=== PATIENT | female | born 1960 ===

== ENCOUNTER 2017-12-07 15:34 | Emergency (ER) | payer SELFPAY ==
[2017-12-07 15:47] LABS: Basophils % (Auto) 0.5 % (0.0-1.8); Eosinophils # (Auto) 0.1 K/mm3 (0.0-0.4); Eosinophils % (Auto) 1.3 % (0.0-4.3); Hematocrit 44.7 % (30.3-42.9); Hemoglobin 14.9 gm/dl (10.1-14.3); Lymphocytes % (Auto) 22.1 % (13.4-35.0); Mean Corpuscular HGB Conc 33 % (30-34); Mean Corpuscular Hemoglobin 30 pg (28-32); Mean Corpuscular Volume 91 fl (79-97); Monocytes # (Auto) 0.6 K/mm3 (0.0-0.8); Monocytes % (Auto) 6.5 % (0.0-7.3); Platelet Count 199 K/mm3 (140-440); Red Blood Count 4.93 M/mm3 (3.65-5.03); Red Cell Distribution Width 13.1 % (13.2-15.2)
[2017-12-07 15:56] LABS: INR 0.87 (0.87-1.13)
[2017-12-07 15:57] LABS: Partial Thromboplastin Time 26.2 Sec. (24.2-36.6)
[2017-12-07 15:58] LABS: BUN/Creatinine Ratio 20; Blood Urea Nitrogen 12 mg/dL (7-17); Calcium 9.2 mg/dL (8.4-10.2); Hemolysis Index 4
--- NOTE | 2017-12-07 16:02 | Cat Scan Report ---
FINAL REPORT EXAM: CT HEAD/BRAIN WO CON HISTORY: neuro deficits < 6hrs or sx present upon awakening TECHNIQUE: CT examination of the head without IV contrast PRIORS: None. FINDINGS: 2.7 cm hyperdensity is noted in the left parietal lobe brain parenchyma. This most compatible with intercerebral hematoma. There is a thin rind of low density adjacent to this lesion compatible with minimal edema. Minimal mass effect from this lesion as well with 1 mm rightward septum pellucidum in deviation. Slight effacement of adjacent sulci in the left parietal lobe. No acute air-fluid level visualized in the included air-filled sinuses. Bone windows demonstrate no acute fracture. The ventricles and sulci are age-appropriate. Small CSF density in the left caudate body is suggestive of chronic lacunar infarct. IMPRESSION: Hyperdense lesion most compatible with intercerebral hematoma in the left parietal lobe deep white matter region. Differential includes heavily calcified neoplasm, considered less likely Small chronic appearing lacunar infarct in left caudate body 12/07/2017 at 3:53 p.m. EST: I discussed the findings over the phone with Dr. Wellington. He reports the patient came in with uncontrolled hypertension and this may be a hypertensive bleed
--- NOTE | 2017-12-07 16:44 | Emergency Department Report ---
ED Neuro Deficit HPI - General Chief Complaint: Neuro Symptoms/Deficit Stated Complaint: POSS STROKE Time Seen by Provider: 12/07/17 15:57 Source: EMS Mode of arrival: Stretcher Limitations: Altered Mental Status - History of Present Illness Initial Comments: According to the family, the patient started acting in an altered manner at about 1210 this afternoon per I think a significant other. By about 2:30, she called her daughter and was having obvious problems with her mentation. Her daughter called the ambulance for difficulty speaking. The patient is a 57-year -old female with a history of a prior stroke perhaps 10 years ago associated with slight left sided weakness I am told by paramedics. She has not seen a physician in 3 years. According to the family she is not taking any medications and does not have a history of hypertension. However it seems clear that she has not utilize any physician services for a long time. She was transported to this facility and found to have severe systolic hypertension as a code stroke. Examination at the daughter indicates that the patient has significant expressive aphasia. She is able to tell me her name and grasp my hands. She appears to be a bit emotionally labile however definitely seems phasic. She appears to have mild right sided drift. -: Sudden Location: speech, right arm, right leg History of same: Yes Place: home Severity: moderate Quality: other (difficulty speaking is the voiced symptom) Improves With: none Worsens With: none On Anticoagulants: No Context: sudden onset (probably) Associated Symptoms: other (dysarthric to obtain) - Related Data Allergies/Adverse Reactions: Allergies Allergy/AdvReac Type Severity Reaction Status Date / Time No Known Allergies Allergy Verified 12/07/17 15:36 ED Review of Systems ROS: Stated complaint: POSS STROKE Other details as noted in HPI Comment: Unobtainable due to pts medical conditions ED Past Medical Hx - Past Medical History Previous Medical History?: Yes Additional medical history: stroke 2008 - Surgical History Past Surgical History?: No - Social History Smoking Status: Never Smoker Substance Use Type: None ED Neuro Physical Exam - General Limitations: Altered Mental Status General appearance: in no apparent distress, anxious Suspected Stroke: Yes - Head Head exam: Present: atraumatic, normocephalic - Eye Eye exam: Present: normal appearance, PERRL, EOMI. Absent: scleral icterus - ENT ENT exam: Present: mucous membranes moist - Neck Neck exam: Present: normal inspection. Absent: tenderness, meningismus - Respiratory Respiratory exam: Present: normal lung sounds bilaterally. Absent: respiratory distress - Cardiovascular Cardiovascular Exam: Present: regular rate, normal rhythm. Absent: systolic murmur, diastolic murmur, rubs, gallop - GI/Abdominal GI/Abdominal exam: Present: soft, normal bowel sounds. Absent: distended, tenderness, guarding, rebound, rigid - Extremities Exam Extremities exam: Present: normal inspection - Back Exam Back exam: Present: normal inspection - Neurological Exam Neurological exam: Present: altered, oriented X3 (can barely tell me her name and aware she is in the hospital), other (right sided drift upper and lower, plantar is upgoing on the left downgoing on the right) - NIHSS Assessment Interval: Baseline 1a. Level of Consciousness: alert 1b. LOC Questions: answers 1 question correctly 1c. LOC Commands: performs tasks correctly 2. Best Gaze: normal 3. Visual: no visual loss 4. Facial Palsy: normal symmetrical movement 5b. Motor Arm Right: drift 5a. Motor Arm Left: no drift 6a. Motor Leg Left: drift 6b. Motor Leg Right: no drift 7. Limb Ataxia: absent 8. Sensory: normal 9. Best Language: mild/moderate aphasia 10. Dysarthria: mild/moderate dysarthria 11. Extinction/Inattention: no abnormality Total Score: 5 Stroke Severity: Moderate Stroke - Psychiatric Psychiatric exam: Present: normal affect, normal mood - Skin Skin exam: Present: warm, dry, intact, normal color. Absent: rash ED Course Vital Signs 12/07/17 12/07/17 12/07/17 15:50 15:56 16:00 Temperature Pulse Rate 68 80 81 Respiratory 17 14 12 Rate Blood Pressure 240/84 Blood Pressure [Right] O2 Sat by Pulse 97 96 Oximetry 12/07/17 12/07/17 12/07/17 16:03 16:09 16:14 Temperature 98.2 F 98.2 F Pulse Rate 81 81 Respiratory 15 15 15 Rate Blood Pressure 240/84 Blood Pressure 240/84 [Right] O2 Sat by Pulse 96 96 96 Oximetry - Reevaluation(s) Reevaluation #1: I spoke with Dr. Muñoz, stroke neurologist at [facility] shortly after images were available. The patient has a 3 x 3 x 3 cm left parietal hematoma. It is superficial and does not affect the basal ganglion. Dr. Muñoz was kind enough to accept the patient for transfer for consideration for possible intervention. A nicardipine drip was begun. Target blood pressure will be in the 160s. 12/07/17 16:48 - Lab Data Result diagrams: 12/07/17 15:30 12/07/17 15:30 Lab Results 12/07/17 12/07/17 12/07/17 Range/Units 15:30 15:30 15:30 WBC 9.0 (4.5-11.0) K/mm3 RBC 4.93 (3.65-5.03) M/mm3 Hgb 14.9 H (10.1-14.3) gm/dl Hct 44.7 H (30.3-42.9) % MCV 91 (79-97) fl MCH 30 (28-32) pg MCHC 33 (30-34) % RDW 13.1 L (13.2-15.2) % Plt Count 199 (140-440) K/mm3 Lymph % (Auto) 22.1 (13.4-35.0) % [place] % (Auto) 6.5 (0.0-7.3) % Eos % (Auto) 1.3 (0.0-4.3) % Baso % (Auto) 0.5 (0.0-1.8) % Lymph # 2.0 (1.2-5.4) K/mm3 [place] # 0.6 (0.0-0.8) K/mm3 Eos # 0.1 (0.0-0.4) K/mm3 Baso # 0.0 (0.0-0.1) K/mm3 Seg Neutrophils % 69.6 (40.0-70.0) % Seg Neutrophils # 6.3 (1.8-7.7) K/mm3 PT 12.3 (12.2-14.9) Sec. INR 0.87 (0.87-1.13) APTT 26.2 (24.2-36.6) Sec. Thrombin Time (15.1-19.6) Sec. Sodium 139 (137-145) mmol/L Potassium 3.7 (3.6-5.0) mmol/L Chloride 98.4 (98-107) mmol/L Carbon Dioxide 26 (22-30) mmol/L Anion Gap 18 mmol/L BUN 12 (7-17) mg/dL Creatinine 0.6 L (0.7-1.2) mg/dL Estimated GFR > 60 ml/min BUN/Creatinine Ratio 20 % Glucose 289 H (65-100) mg/dL Calcium 9.2 (8.4-10.2) mg/dL Troponin T < 0.010 (0.00-0.029) ng/mL 12/07/17 Range/Units 15:30 WBC (4.5-11.0) K/mm3 RBC (3.65-5.03) M/mm3 Hgb (10.1-14.3) gm/dl Hct (30.3-42.9) % MCV (79-97) fl MCH (28-32) pg MCHC (30-34) % RDW (13.2-15.2) % Plt Count (140-440) K/mm3 Lymph % (Auto) (13.4-35.0) % [place] % (Auto) (0.0-7.3) % Eos % (Auto) (0.0-4.3) % Baso % (Auto) (0.0-1.8) % Lymph # (1.2-5.4) K/mm3 [place] # (0.0-0.8) K/mm3 Eos # (0.0-0.4) K/mm3 Baso # (0.0-0.1) K/mm3 Seg Neutrophils % (40.0-70.0) % Seg Neutrophils # (1.8-7.7) K/mm3 PT (12.2-14.9) Sec. INR (0.87-1.13) APTT (24.2-36.6) Sec. Thrombin Time 15.3 (15.1-19.6) Sec. Sodium (137-145) mmol/L Potassium (3.6-5.0) mmol/L Chloride (98-107) mmol/L Carbon Dioxide (22-30) mmol/L Anion Gap mmol/L BUN (7-17) mg/dL Creatinine (0.7-1.2) mg/dL Estimated GFR ml/min BUN/Creatinine Ratio % Glucose (65-100) mg/dL Calcium (8.4-10.2) mg/dL Troponin T (0.00-0.029) ng/mL - Core Measures Door to Thrombolytics, if given: this patient is not a candidate for TPA as obviously have an intracranial h Critical Care Time: Yes Critical care time in (mins) excluding proc time.: 60 Critical care attestation.: If time is entered above; I have spent that time in minutes in the direct care of this critically ill patient, excluding procedure time. ED Disposition Clinical Impression: Intracranial hemorrhage, Hypertensive crisis Disposition: DC/TX-70 ANOTHER TYPE HLTHCARE Is pt being admited?: No Does the pt Need Aspirin: No Condition: Stable Time of Disposition: 16:52
[2017-12-07] MEDS ORDERED: CARDENE 50 MG in NACL 0.9% 250ML 230 ML IV SCH (17:00)
[2017-12-07 17:04] VITALS: BP 146/94
--- NOTE | 2017-12-07 17:22 | XRay Report ---
FINAL REPORT EXAM: XR CHEST 1V AP HISTORY: neuro deficit TECHNIQUE: Frontal portable examination of the chest PRIORS: None FINDINGS: There is no pulmonary consolidation, pleural effusion, or pneumothorax. The regional skeleton is without acute pathology. The cardiac silhouette size is slightly enlarged without evidence of vascular congestion or pulmonary edema. IMPRESSION: No acute pulmonary disease in the visualized chest Cardiac silhouette size slightly enlarged without evidence of vascular congestion
== END 2017-12-07 17:24 | disposition other institution (70) ==
LOC: ED 15:34
DX: I62.9 Nontraumatic intracranial hemorrhage, unspecified (principal); I16.9 Hypertensive crisis, unspecified; Z86.73 Personal history of transient ischemic attack (TIA), and cerebral infarction without residual deficits
CPT/HCPCS: 36415; 70450; 71045; 80048; 82962; 84484; 85025; 85610; 85670; 85730; 93005; 93010; 96365; 99291; J7050